=== PATIENT | male | born 1950 | race Caucasian/White ===

== ENCOUNTER → 2020-11-02 09:58 | Outpatient (CLI) | payer MEDICARE, OTHER, SELFPAY ==
[2019-12-03 14:12] VITALS: BMI 28.0
--- NOTE | 2020-11-02 10:03 | ECHOD_ITS ---
Reason For Study: LV DYSFUNCTION AND AV INSUFFICIENCY Procedure This was a 2D Doppler, Color Flow transthoracic echocardiogram. Exam performed in department. Left Ventricle The estimated ejection fraction is 55 %. Normal diastology for age. No regional wall motion abnormalities noted. Right Ventricle Normal RV size. Normal systolic function. Atria Normal left atrium. Normal right atrium. No doppler evidence for ASD. Mitral Valve There is mild mitral annular calcification. There is no mitral valve stenosis. No mitral valve insufficiency. Tricuspid Valve There is no tricuspid stenosis. No tricuspid valve insufficiency. Unable to estimate RV systolic pressure due to inadequate jet, pulmonary artery pressure probably normal. Aortic Valve Trisinus/trileaflet aortic valve. There is no aortic stenosis. Mild (1+) aortic valve insufficiency. Pulmonic Valve There is no pulmonic valvular stenosis. Trivial pulmonic valve insufficiency. Great Vessels Normal aortic root. Pericardium/Pleural No pericardial effusion. MMode/2D Measurements & Calculations LVIDd: 5.6 cm IVSd: 1.0 cm Ao root diam: 3.6 cm LVIDs: 3.8 cm LVPWd: 1.0 cm RVDd: 3.4 cm FS: 32.7 % LAV(MOD-bp): 47.8 ml LA A4 area: 20.1 cm2 LA dimension(2D): 4.6 cm LAV(MOD-bp) Indexed: 22.1 ml/m2 LAV(MOD-sp2): 43.7 ml LAV(MOD-sp4): 52.9 ml RA A4 area: 22.1 cm2 Time Measurements MV dec time: 0.32 sec Doppler Measurements & Calculations MV E max johnson: 61.1 cm/sec Lat Peak E' Johnson: 4.8 cm/sec Med Peak E' Johnson: 5.2 cm/sec MV A max johnson: 78.3 cm/sec E/E' lat: 12.8 E/E' med: 11.8 MV E/A: 0.78 Ao V2 max: 141.6 cm/sec LV V1 max: 107.7 cm/sec PA V2 max: 122.6 cm/sec Ao max P.0 mmHg LV V1 max P.6 mmHg ECHO/Echo Complete Interpretation Summary The estimated ejection fraction is 55 %. Normal diastology for age. Mild (1+) aortic valve insufficiency. Ordering Physician: Victor Manuel Schmidt Referring Physician: Saman Herman Performed By: Sandra Cline RDCS, RVT
== END ==
PROVIDERS: PCP Family Medicine; Referring Provider Specialist; Visit Provider Specialist
DX: I35.1 Nonrheumatic aortic (valve) insufficiency (principal)
CPT/HCPCS: 93306